=== PATIENT | male | born 1955 | race Caucasian/White ===

== ENCOUNTER 2017-12-17 18:04 | Emergency (ER) | payer OTHER ==
[~2017-12-17] VITALS: Ht 177.8 cm; Wt 72.6 kg
[~2017-12-17 18:04] MED LIST: CRUTCH4 XX; HYDR1TAB94 PO
[2017-12-17] MEDS ORDERED: IBUP800 PO (20:03)
[2017-12-17] MEDS ORDERED: Acetaminophen-1 EAC1 PO (20:03)
== END 2017-12-17 20:48 | disposition home or self-care (01) ==
LOC: ER 18:04
DX: S61.412A Laceration without foreign body of left hand, initial encounter (principal); S61.213A Laceration without foreign body of left middle finger without damage to nail, initial encounter; S16.1XXA Strain of muscle, fascia and tendon at neck level, initial encounter; S46.911A Strain of unspecified muscle, fascia and tendon at shoulder and upper arm level, right arm, initial encounter; S13.4XXA Sprain of ligaments of cervical spine, initial encounter; S20.219A Contusion of unspecified front wall of thorax, initial encounter; S00.81XA Abrasion of other part of head, initial encounter; S50.812A Abrasion of left forearm, initial encounter; S80.212A Abrasion, left knee, initial encounter; Z79.899 Other long term (current) drug therapy; Z87.891 Personal history of nicotine dependence; V86.59XA Driver of other special all-terrain or other off-road motor vehicle injured in nontraffic accident, initial encounter
CPT/HCPCS: 12002; 36415; 70450; 71046; 72125; 73030; 73130; 73562-LT; 73562-RT; 90471; 90714; 93005; 93010; 96374; 99284; J3010; L0160

== ENCOUNTER 2019-01-09 14:41 | Emergency (ER) | payer OTHER ==
[~2019-01-09] VITALS: Ht 180.3 cm; Wt 74.8 kg
[~2019-01-09 14:41] MED LIST changes: +Acetaminophen-1 EAC1 PO; +IBUP800 PO
[2019-01-09] MEDS ORDERED: Naprosyn500 MG PO (15:56)
[2019-01-09] MEDS ORDERED: Norco 5-325 Ta1 EACH PO (15:56)
== END 2019-01-09 16:08 | disposition home or self-care (01) ==
LOC: ER 14:41
DX: S93.401A Sprain of unspecified ligament of right ankle, initial encounter (principal); F17.210 Nicotine dependence, cigarettes, uncomplicated; Z88.0 Allergy status to penicillin; W55.89XA Other contact with other mammals, initial encounter
CPT/HCPCS: 73610; 73620; 99283-25